=== PATIENT | male | born 1995 | race African-American/Black ===

== ENCOUNTER 2022-10-09 05:46 | Emergency (ER) | payer OTHER ==
[~2022-10-09] VITALS: Ht 180.3 cm; Wt 72.6 kg
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
--- NOTE | 2022-10-09 06:24 | NUR ---
Pt is noted off the unit with CHF [id number] as he is under Custody and he is been discharge with all Discharged instructions given and clear by DR. Newberry with [facility] for [facility].
[2022-10-09 06:29] VITALS: BP 122/68
== END 2022-10-09 06:31 ==
LOC: ER 05:46
DX: Z88.1 Allergy status to other antibiotic agents
CPT/HCPCS: A4663